=== PATIENT | female | born 1960 | race African-American/Black ===

== ENCOUNTER 2016-10-09 09:03 | Emergency (ER) | payer OTHER ==
[2016-10-09 09:08] VITALS: BP 146/87
--- NOTE | 2016-10-09 09:35 | ER Document Report ---
HPI - HPI Pain Level: 3 Notes: Patient is a 56-year-old female presents the ED complaining of right ear pain, decreased hearing, nasal congestion/discharge, postnasal drip, occasional cough that is dry and semi-productive 4 days. Patient states that her ear primarily started bothering her in the last 1-2 days. She still eating drink without any problems. She has been using [id number] meds with minimal relief. Patient states that she has had the occasional body ache. Denies any medicine allergies. denies any significant past medical history aside from mild depression and is on Wellbutrin. Patient denies any smoking or illicit drug use. Her PCM is Dr. Herbert. No other concerns or complaints. Denies any headaches, current fever, sore throat, dizziness, tinnitus, chest pain, palpitations, syncope, wheezing, shortness of breath, dyspnea, abdominal pain, nausea/vomiting/diarrhea, dysuria, joint pains, or rash - ROS Notes: REVIEW OF SYSTEMS: CONSTITUTIONAL : Denies fever, chills, or sweats. Denies recent illness. EENT: see hpi CARDIOVASCULAR: Denies chest pain. Denies palpitations or racing or irregular heart beat. Denies ankle edema. RESPIRATORY: Denies cough, cold, or chest congestion. Denies shortness of breath, difficulty breathing, or wheezing. GASTROINTESTINAL: Denies abdominal pain or distention. Denies nausea, vomiting , or diarrhea. Denies blood in vomitus, stools, or per rectum. Denies black, tarry stools. Denies constipation. GENITOURINARY: Denies difficulty urinating, painful urination, burning, frequency, blood in urine, or discharge. MUSCULOSKELETAL: Denies back or neck pain or stiffness. Denies joint pain or swelling. SKIN: Denies rash, lesions or sores. PSYCHIATRIC: Denies anxiety or stress. Denies depression, suicidal ideation, or homicidal ideation. ALL OTHER SYSTEMS REVIEWED AND NEGATIVE. Dictation was performed using [employer] voice recognition software - CARDIOVASCULAR Cardiovascular: DENIES: Chest pain - DERM Skin Color: Normal Past Medical History - Social History Smoking Status: Never Smoker Chew tobacco use (# tins/day): No Frequency of alcohol use: None Drug Abuse: None Family History: Reviewed & Not Pertinent Patient has suicidal ideation: No Patient has homicidal ideation: No - Past Medical History Cardiac Medical History: Denies: Hx Coronary Artery Disease, Hx Heart Attack, Hx Hypertension Pulmonary Medical History: Denies: Hx Asthma, Hx Bronchitis, Hx COPD, Hx Pneumonia Neurological Medical History: Denies: Hx Cerebrovascular Accident, Hx Seizures Renal/ Medical History: Denies: Hx Peritoneal Dialysis Musculoskeltal Medical History: Denies Hx Arthritis Psychiatric Medical History: Reports: Hx Depression Past Surgical History: Reports: Hx Section. Denies: Hx Hysterectomy, Hx Pacemaker - Immunizations Hx Diphtheria, Pertussis, Tetanus Vaccination: Yes Vertical Provider Document - CONSTITUTIONAL Agree With Documented VS: Yes Notes: PHYSICAL EXAMINATION: GENERAL: Well-appearing, well-nourished and in no acute distress. HEAD: Atraumatic, normocephalic. EYES: Pupils equal round and reactive to light, extraocular movements intact, sclera anicteric, conjunctiva are normal. ENT: white discharge to rt EAC. Rt TM not visualized on initial exam (will irrigate, pt did not tolerate curette). + tenderness with speculum in ear. No mastoid tenderness or erythema outside of the ear. Left EAC/TM wnl. Nares patent and without discharge, no inflammation. oropharynx clear without exudates. tonsils absent. Uvula midline. No palatine shift. Moist mucous membranes. No sinus tenderness. NECK: Normal range of motion, supple without lymphadenopathy. No rigidity/ meningismus. LUNGS: Breath sounds clear to auscultation bilaterally and equal. No wheezes rales or rhonchi. HEART: Regular rate and rhythm without murmurs, rubs, gallops. Extremities: No cyanosis, clubbing, or edema b/l. Peripheral pulses 2+. Capillary refill less than 3 seconds. PSYCH: Normal mood, normal affect. SKIN: Warm, Dry, normal turgor, no rashes or lesions noted. - INFECTION CONTROL TRAVEL OUTSIDE OF THE [place] IN LAST 30 DAYS: No - RESPIRATORY O2 Sat by Pulse Oximetry: 100 Course - Re-evaluation Re-evalutation: 10/09/16 10:05 Patient is an afebrile, well-hydrated, 56-year-old female which is the ED with acute right otitis externa, uncomplicated. Irrigation performed and still unable to visualize the right TM. I will place her on Ciprodex drops to use as directed, which are also safe if there is a TM perforation. No systemic antibiotics are warranted at this time. I suspect that her other URI is viral based on her H&P. Vitals are otherwise stable. PE otherwise unremarkable with clear lungs. Low suspicion for any meningismus, sepsis, Mnire's disease, mastoiditis, pneumonia, PE, ACS, pharyngeal abscess. Conservative measures for symptoms otherwise as reviewed. Recheck with your PCM in 2-3 days. Consider consult with ENT for ongoing/worsening symptoms. Return to the ED with any worsening/concerning symptoms as reviewed in discharge. Patient is in agreement. - Vital Signs Vital signs: Temp Pulse Resp BP Pulse Ox 98.4 F 102 H 16 146/87 H 100 10/09/16 09:04 10/09/16 09:04 10/09/16 09:04 10/09/16 09:04 10/09/16 09:04 Discharge - Discharge Clinical Impression: Acute otitis externa of right ear Qualifiers: Otitis externa type: unspecified type Qualified Code(s): H60.501 - Unspecified acute noninfective otitis externa, right ear Condition: Stable Instructions: Acetaminophen, Use of Ear Drops ([facility]), Otitis Externa ([facility]) Additional Instructions: Maintain adequate fluid intake Take meds as directed Use ear drops as directed tylenol/ibuprofen as needed over the counter cold medication as needed for symptoms Humidified air may help F/u: with your PCM in 2-3 days for a recheck Consider consult with ENT for ongoing/worsening symptoms as well: [facility] Address: [address] [place], [place] [id number] Return to the ED with any worsening symptoms and/or development of fever, headache, dizziness, facial swelling, chest pain, palpitations, syncope, shortness of breath, trouble breathing, abdominal pain, n/v/d, muscle weakness/ paralysis, numbness/tingling, or other worsening symptoms that are concerning to you. Prescriptions: Ciprofloxacin HCl/Dexameth [Ciprodex Otic Suspension 7.5 ml Bottle] 4 drop OT BID #1 bottle Referrals: ENT [Provider Group] - Follow up as needed
== END 2016-10-09 10:46 | disposition home or self-care (01) ==
LOC: ER 09:03
DX: H60.501 Unspecified acute noninfective otitis externa, right ear (principal); R09.82 Postnasal drip; R05 Cough; F32.9 Major depressive disorder, single episode, unspecified; Z79.899 Other long term (current) drug therapy
CPT/HCPCS: 99282